=== PATIENT | male | born 1980 | race Caucasian/White ===

== ENCOUNTER 2017-02-13 17:30 | Emergency (ER) | payer SELFPAY ==
[~2017-02-13] VITALS: Ht 182.9 cm; Wt 77.9 kg
[2017-02-13] MEDS ORDERED: KETOROLAC 30 MG/1 ML ONE (18:52)
[2017-02-13] MEDS ORDERED: KETOROLAC 30 MG/1 ML IM ONE (19:00)
[2017-02-13 19:35] VITALS: BP 128/78
== END 2017-02-13 19:37 | disposition home or self-care (01) ==
LOC: ED 19:31
DX: S39.012A Strain of muscle, fascia and tendon of lower back, initial encounter (principal); X58.XXXA Exposure to other specified factors, initial encounter; Y93.89 Activity, other specified; Y99.8 Other external cause status; Y92.89 Other specified places as the place of occurrence of the external cause
CPT/HCPCS: 72110; 93005; 96372; 99284; J1885

== ENCOUNTER 2019-10-06 12:07 | Emergency (ER) | payer MEDICAID, OTHER ==
[~2019-10-06] VITALS: Ht 182.9 cm; Wt 70.0 kg
--- NOTE | 2019-10-06 12:48 | NUR ---
PT PRESENTING TO ER FOR SHARP EPIGASTRIC PAIN X1 MONTH. PT STS FEELS BETTER WHEN LAYING DOWN BUT EVERYTHING ELSE HURTS. CONNECTED TO ALL MONITORING. FAMILY AT BEDSIDE. CALL LIGHT WITHIN REACH. LABS COLLECTED. PT UP TO RESTROOM FOR URINE SAMPLE
[2019-10-06 12:55] LABS: BASOPHILS # (AUTO) 0.04 x10^3/uL (0-0.1); BASOPHILS % (AUTO) 0 % (0-1); EOSINOPHILS # (AUTO) 0.14 x10^3/uL (0-0.4); EOSINOPHILS % (AUTO) 2 % (1-7); LYMPHOCYTES # (AUTO) 2.23 x10^3/uL (1-3.4); LYMPHOCYTES % (AUTO) 23 % (22-44); MD NO; MEAN CORPUSCULAR HEMOGLOBIN 32.8 pg (27.5-34.5); MEAN CORPUSCULAR HGB CONC 33.3 g/dL (33.2-36.2); MEAN CORPUSCULAR VOLUME 98.6 fL (81-97); MEAN PLATELET VOLUME 7.2 fL (7.4-10.4); MONOCYTES # (AUTO) 0.46 x10^3/uL (0.2-0.8); MONOCYTES % (AUTO) 5 % (2-9); NEUTROPHILS # (AUTO) 6.66 x10^3/uL (1.8-6.8); NEUTROPHILS % (AUTO) 70 % (42-75); PLATELET COUNT 235 x10^3/uL (130-400); RED BLOOD COUNT 5.37 x10^6/uL (4.38-5.82); RED CELL DISTRIBUTION WIDTH 12.9 % (9.4-14.8)
[2019-10-06 13:07] LABS: ALANINE AMINOTRANSFERASE 19 U/L (12-78); ANION GAP 4 mmol/L (5-15); CALCIUM 9.2 mg/dL (8.5-10.1); CHLORIDE 106 mmol/L (98-107); CREATININE 0.79 mg/dL (0.7-1.3)
[2019-10-06 13:09] LABS: ALKALINE PHOSPHATASE 101 U/L (45-117); BILIRUBIN,TOTAL 0.6 mg/dL (0.2-1.0); TOTAL PROTEIN 7.5 g/dL (6.4-8.2)
--- NOTE | 2019-10-06 13:45 | NUR ---
PT TO IMAGING AT THIS TIME
[2019-10-06] MEDS ORDERED: OMNIPAQUE 350 MG/ML, 100ML BOTTLE ONE (13:52)
[2019-10-06 14:00] VITALS: BP 102/67
[2019-10-06] MEDS ORDERED: MAALOX/HYOSCYAMINE/LIDOCAINE 45 ML BTL ONE (14:20)
--- NOTE | 2019-10-06 14:23 | NUR ---
PT MEDICATED PER MAR, VSS, AT BEDSIDE. AWAITING RESULTS OF UA. NAD NOTED
[2019-10-06] MEDS ORDERED: MAALOX/HYOSCYAMINE/LIDOCAINE 45 ML BTL PO ONE (14:30)
[2019-10-06 14:39] LABS: MICROSCOPIC NOT IND
[2019-10-06 14:49] LABS: CULTURE INDICATED? NO
== END 2019-10-06 15:33 | disposition home or self-care (01) ==
LOC: ED 14:06
DX: K26.3 Acute duodenal ulcer without hemorrhage or perforation (principal); R10.13 Epigastric pain; F17.200 Nicotine dependence, unspecified, uncomplicated; Z72.89 Other problems related to lifestyle
CPT/HCPCS: 36415; 74177; 80053; 81003; 83690; 85025; 93005; 99284; Q9967

== ENCOUNTER 2020-03-14 19:40 | Emergency (ER) | payer MEDICAID ==
[~2020-03-14] VITALS: Ht 182.9 cm; Wt 71.1 kg
[2020-03-14 19:47] VITALS: BP 109/68
== END 2020-03-14 20:54 | disposition home or self-care (01) ==
LOC: ED 20:35
DX: J02.8 Acute pharyngitis due to other specified organisms (principal); H92.01 Otalgia, right ear; B97.89 Other viral agents as the cause of diseases classified elsewhere
CPT/HCPCS: 87081; 87880; 99283

== ENCOUNTER 2020-04-12 13:08 | Emergency (ER) | payer OTHER, MEDICAID ==
[~2020-04-12] VITALS: Ht 182.9 cm; Wt 71.6 kg
[2020-04-12 13:11] VITALS: BP 103/70
--- NOTE | 2020-04-12 13:25 | NUR ---
[facility] IS AT THE BEDSIDE FOR ASSESSMENT
--- NOTE | 2020-04-12 13:52 | NUR ---
PT TO XR W TECH
== END 2020-04-12 14:51 | disposition home or self-care (01) ==
LOC: ED 14:47
DX: M25.561 Pain in right knee (principal)
CPT/HCPCS: 99283

== ENCOUNTER 2020-10-21 17:51 | Emergency (ER) | payer MEDICAID, OTHER ==
[~2020-10-21] VITALS: Ht 182.9 cm; Wt 76.8 kg
--- NOTE | 2020-10-21 18:47 | NUR ---
Tech applying LAUREL wrap per MD order.
[2020-10-21 18:48] VITALS: BP 125/80
--- NOTE | 2020-10-21 18:49 | NUR ---
LAUREL wrap applied. Pt requesting work note.
--- NOTE | 2020-10-21 19:03 | NUR ---
Provided pt work note.
== END 2020-10-21 19:37 | disposition home or self-care (01) ==
LOC: ED 19:15
DX: M25.562 Pain in left knee (principal); F17.200 Nicotine dependence, unspecified, uncomplicated
CPT/HCPCS: 99282